=== PATIENT | female | born 1985 | race Caucasian/White ===

== ENCOUNTER → 2017-05-07 | Outpatient (CLI) | payer BC ==
--- NOTE | 2017-05-07 10:43 | DI ---
MRI LEFT SHOULDER SCAN, 05/07/2017 8:56 AM: Clinical History: Left shoulder pain. Previous Exam: None at this facility. Technique: Axial, coronal, and sagittal fat saturated PD; axial gradient FE; coronal fat saturatedT2 weighted; sagittal T2 weighted. There is no soft tissue edema or abnormal bone signal pattern involving the humeral head or glenoid f beckie. There is fluid in the subacromion bursa consistent with mild bursitis. There is a type II acrom ion. Moderate arthrosis of the AC joint is present with mild cancellous edema of the lateral head of the clavicle. There is mild tendinosis of the supraspinatus tendon and the tendon of the long head of the biceps muscle in the rotator interval. The tendons of the infraspinatus, teres minor, and subsca pularis muscles are normal. The glenoid labrum is intact. There is no muscle edema or atrophy noted. Readin. There is moderate arthrosis of the AC joint with subacromion bursitis. There is tendinosis of the supraspinatus tendon and the tendon of the long head of the biceps muscle in the rotator interval. 2. The infraspinatus, teres minor, and subscapularis tendons are normal. The glenoid labrum is intac t.
== END ==
LOC: MRI 08:49
PROVIDERS: ATTEND Chiropractor
DX: M25.512 Pain in left shoulder (principal); M19.012 Primary osteoarthritis, left shoulder; M75.52 Bursitis of left shoulder
CPT/HCPCS: 73221